=== PATIENT | female | born 1945 | race African-American/Black ===

== ENCOUNTER 2024-01-27 06:08 | Outpatient (REF) | payer MEDICARE, SELFPAY ==
[2024-01-27 06:03] LABS: MANUAL DIFF FLAG NO
[2024-01-27 07:07] LABS: Basophils Absolute Auto 0.1 X10*3/uL (0.0-0.2); Basophils Percent Auto 0.5 % (0-2); Eosinophils Absolute Auto 0.1 X10*3/uL (0.0-0.4); Eosinophils Percent Auto 0.5 % (0-4); Hematocrit 26.7 % (37.0-47.0); Hemoglobin 8.3 g/dl (12.0-16.0); Lymphocytes Percent Auto 9.9 % (20-40); Mean Corpuscular HGB Conc 31.1 g/dl (31.0-35.0); Mean Corpuscular Hemoglobin 25.3 pg (27.0-33.0); Mean Corpuscular Volume 81.4 fL (80.0-98.0); Monocytes Absolute Auto 0.7 X10*3/uL (0.1-1.2); Monocytes Percent Auto 7.6 % (2-11); Neutrophils Absolute Auto 7.8 x10*3/uL (2.0-8.3); Neutrophils Percent Auto 80.5 % (45-73); Platelet Count 369 X10*3/uL (160-400); Red Blood Count 3.28 X10*6/uL (4.20-5.50); Red Cell Distribution Width 16.3 % (11.0-16.0); White Blood Count 9.7 X10*3/uL (4.8-10.8)
[2024-01-27 07:49] LABS: Anion Gap 13 (12-20); Blood Urea Nitrogen 13 mg/dL (9-16); Calcium 8.5 mg/dL (8.4-10.2); Carbon Dioxide 29 mmol/L (22-29); Chloride 101 mmol/L (96-108); Estimated Glomerular Filt Rate > 60; Glucose Random 178 mg/dL (60-115); Potassium 3.4 mmol/L (3.3-5.1); Sodium 140 mmol/L (135-145)
== END 2024-01-27 06:09 | disposition home or self-care (01) ==
LOC: HO.MMNH1L 06:08
PROVIDERS: Visit Provider Family Medicine
DX: I10 Essential (primary) hypertension (principal); A04.72 Enterocolitis due to Clostridium difficile, not specified as recurrent
CPT/HCPCS: 36415; 80048; 85025

== ENCOUNTER 2024-01-31 06:00 | Emergency (ER) | payer MEDICARE, SELFPAY ==
[2024-01-31] VITALS (7 sets, daily range): BP systolic 150–197; BP diastolic 80–110; PULSE 80–87; RESP 15–20; TEMP 36.7–37.6; O2SAT 90–95; BMI 17.9
--- NOTE | 2024-01-31 | ECG_ITS ---
Test Reason : HIGH BP Blood Pressure : / mmHG Vent. Rate : 080 BPM Atrial Rate : 080 BPM P-R Int : 124 ms QRS Dur : 062 ms QT Int : 332 ms P-R-T Axes : 012 -30 032 degrees QTc Int : 382 ms Normal sinus rhythm Left axis deviation Minimal voltage criteria for LVH, may be normal variant ( R in aVL ) Inferior infarct , age undetermined Anterolateral infarct , age undetermined Abnormal ECG No previous ECGs available Referred By: Generic ED Physician Electronically Signed By:Lamberto Whitehead
[2024-01-31 06:49] LABS: Hematocrit 28.3 % (37.0-47.0); Hemoglobin 8.9 g/dl (12.0-16.0); Mean Corpuscular HGB Conc 31.4 g/dl (31.0-35.0); Mean Corpuscular Hemoglobin 24.7 pg (27.0-33.0); Mean Corpuscular Volume 78.6 fL (80.0-98.0); Mean Platelet Volume 8.7 fL (9.4-12.3); Platelet Count 332 X10*3/uL (160-400); Red Cell Distribution Width 16.4 % (11.0-16.0); White Blood Count 8.8 X10*3/uL (4.8-10.8)
[2024-01-31 07:17] LABS: Alanine Aminotransferase 6 U/L (0-31); Albumin Level 2.3 g/dL (3.5-5.0); Alkaline Phosphatase 83 U/L (39-117); Anion Gap 13 (12-20); Aspartate Amino Transferase 13 U/L (5-31); Bilirubin Total 0.3 mg/dL (0.0-1.0); Blood Urea Nitrogen 13 mg/dL (9-16); Calcium 8.8 mg/dL (8.4-10.2); Carbon Dioxide 30 mmol/L (22-29); Chloride 102 mmol/L (96-108); Creatinine Clr Calc Pharmacy 50.6; Estimated Glomerular Filt Rate > 60; Glucose Random 197 mg/dL (60-115); Magnesium 1.4 mg/dL (1.6-2.6); Potassium 3.6 mmol/L (3.3-5.1); Sodium 141 mmol/L (135-145)
[2024-01-31 07:20] LABS: Troponin-I High Sensitivity 280.6 ng/L (<3.5-17.0)
--- NOTE | 2024-01-31 07:21 | ED.GENADULT ---
HPI - General Adult General Chief complaint: General Medical Stated complaint: HIGH BLOOD PRESSURE Time Seen by Provider: 01/31/24 07:00 Source: EMS and other Mode of arrival: EMS History of Present Illness HPI narrative: 79-year-old female with history of dementia who is sent in by Juan Diego Shah for elevated blood pressure. The facility did administer 20 mg of lisinopril but blood pressure remained elevated. Patient denies any complaints of pain or discomfort at this time. Related Data Previous Rx's Medication Instructions Recorded cephalexin 500 mg capsule 500 mg PO BID 5 days #10 caps 01/31/24 Allergies Allergy/AdvReac Type Severity Reaction Status Date / Time No Known Allergies Allergy Verified 01/31/24 06:20 Review of Systems Review of Systems: Yes Unobtainable due to mental condition PMFSH Past Medical History Source: nursing notes reviewed Social History Social History Advance Directives: No Advance Directives Information Provided: No Physical Exam ED Vital Signs: Vital Signs - 24 hr 01/31/24 06:09 01/31/24 06:21 01/31/24 07:32 Temperature 98.9 F 98.0 F 99.6 F Pulse Rate 82 82 Respiratory Rate 15 20 Blood Pressure 197/110 H 191/98 H Pulse Oximetry 90 L 91 L Oxygen Delivery Method Room Air Room Air 01/31/24 08:27 Temperature Pulse Rate 81 Respiratory Rate 18 Blood Pressure 150/80 H Pulse Oximetry 93 Oxygen Delivery Method Room Air BMI result Body Mass Index 17.9 VITAL SIGNS: Reviewed. GENERAL: Cachectic, elderly, in no acute distress. HEAD: Normocephalic/atraumatic EYES: PERRLA, EOMI EARS: Ext canals without abnormality NOSE: Nares patent bilateral OROPHARYNX: no oral lesions noted, posterior pharynx clear NECK: Supple, no adenopathy LUNGS: Normal breath sounds. No adventitious sounds or accessory muscle use. SpO2<90> CARDIOVASCULAR: Regular rate and rhythm without noted murmurs, no JVD but 2+ bilateral foot edema noted. ABDOMEN: Soft, non-tender, non-distended with bowel sounds. MUSCULOSKELETAL: No tenderness, deformities, or effusions noted on gross inspection. EXTREMITIES: No cyanosis, clubbing or edema. SKIN: Inspection of the skin reveals no rashes NEUROLOGIC: Sleeping but easily aroused and oriented x 1. Strength and sensation to light touch were grossly intact x 4. Medications Administered Discontinued Medications Generic Name Dose Route Start Last Admin Trade Name Henrry PRN Reason Stop Dose Admin Furosemide 20 mg 01/31/24 08:16 01/31/24 08:28 Furosemide 20 Mg/2 Ml Vial IVPUSH 01/31/24 08:17 20 mg ONCE ONE Administration Protocol Hydralazine HCl 5 mg 01/31/24 07:19 01/31/24 07:41 Hydralazine Hcl 20 Mg/Ml Vial IVPUSH 01/31/24 07:20 5 mg ONCE ONE Administration Protocol Magnesium Sulfate 2 gm in 50 mls @ 150 mls/hr 01/31/24 07:18 01/31/24 08:01 Magnesium Sulfate/H2o IV 01/31/24 07:37 Infused ONCE ONE Infusion Medical Decision Making Medical Decision Making [facility] Narrative: 79-year-old female with inadequately controlled blood pressure, noted to have low oxygenation and will evaluate for possible underlying CHF/viral illness. I reviewed all investigations and hematologic indices are grossly stable without leukocytosis/thrombocytopenia, there is a stable anemia without overt signs bleeding. Chemistry indices do not demonstrate an FRANSISCO/electrolyte derangements other than magnesium which was repleted with 2 g of magnesium sulfate, there are no abnormal LFTs at this time. High sensitivity troponin is elevated but there are no ST elevation changes on the EKG and suspect that this may be related to uncontrolled high blood pressure. 0953: I discussed the case with Dr. Whitehead, cardiology who agrees that this is likely secondary to uncontrolled blood pressure, patient received antibiotics for urinary tract infection is otherwise transferred back to the facility. Differential Diagnosis Differential Diagnoses: The differential diagnosis associated with the presentation includes Please see the discussion above Admission/Observation Consideration of admission/observation: Escalation of care including admission/observation considered Please see the discussion above Consult Healthcare Provider Management of the patient was discussed with: Structural [employer] Please see the discussion above Lab Data [facility] Lab Attestation statement: I reviewed the patient's lab results. Please see the discussion above 01/31/24 06:45 01/31/24 06:45 Labs: Lab Results 01/31/24 01/31/24 01/31/24 Range/Units 06:45 08:50 08:54 WBC 8.8 (4.8-10.8) X10*3/uL RBC 3.60 L (4.20-5.50) X10*6/uL Hgb 8.9 L (12.0-16.0) g/dl Hct 28.3 L (37.0-47.0) % MCV 78.6 L (80.0-98.0) fL MCH 24.7 L (27.0-33.0) pg MCHC 31.4 (31.0-35.0) g/dl RDW 16.4 H (11.0-16.0) % Plt Count 332 (160-400) X10*3/uL MPV 8.7 L (9.4-12.3) fL Absolute Nucleated RBC 0.000 (0.0-0.012) X10*3/uL Nucleated RBC % (auto) 0.0 (0.0-0.2) /100WBC Sodium 141 (135-145) mmol/L Potassium 3.6 (3.3-5.1) mmol/L Chloride 102 (96-108) mmol/L Carbon Dioxide 30 H (22-29) mmol/L Anion Gap 13 (12-20) BUN 13 (9-16) mg/dL Creatinine 0.63 (0.5-1.4) mg/dL Estim Creat Clear Calc 50.6 Estimated GFR > 60 Random Glucose 197 H (60-115) mg/dL Calcium 8.8 (8.4-10.2) mg/dL Magnesium 1.4 L* (1.6-2.6) mg/dL Total Bilirubin 0.3 (0.0-1.0) mg/dL AST 13 (5-31) U/L ALT 6 (0-31) U/L Alkaline Phosphatase 83 (39-117) U/L Troponin I High Sens 280.6 H* 342.2 H* (<3.5-17.0) ng/L B-Natriuretic Peptide 478 H (<100) pg/mL Total Protein 6.0 L (6.5-8.0) g/dL Albumin 2.3 L (3.5-5.0) g/dL Urine Color Yellow Urine Appearance Clear Urine pH 7.0 (5.0-9.0) Ur Specific [place] 1.010 (1.005-1.025) Urine Protein 30 (1+) H (Neg-Trace) mg/dL Urine Glucose (UA) Negative (Negative) mg/dL Urine Ketones Negative (Negative) mg/dL Urine Blood Negative (Negative) Urine Nitrite Negative (Negative) Ur Leukocyte Esterase Small (1+) H (Negative) Urine RBC 0-2 (0-2) /HPF Urine WBC 6-10 H (0-5) /HPF Ur Squamous Epith Cells 0-2 (0-2) /HPF Urine Bacteria None Seen (None Seen) Hyaline Casts 0-2 (0-2) /LPF Independent Interpretation I performed an independent interpretation of an: EKG Interpretation: Normal sinus rhythm, HR -80, no STEMI, MN/QRS/QTC is within normal limits. External Record Review External record reviewed: Outpatient record and Prior outpatient labs Chronic Conditions Patient?s care impacted by: Hypertension Dementia Critical Care Time Critical Care Time Critical Care Time: Yes Total Critical Care Time: 60 Attestation: I personally attest to this time spent taking care of the patient. Discharge Plan Discharge Clinical Impression: Uncontrolled hypertension, Elevated troponin, Acute UTI Patient Disposition: Xfer Other Instructions: Hypertension (ED), Urinary Tract Infection in Older Adults (ED) Additional Instructions: 1. Patient should complete the course of antibiotics as prescribed. 2. If patient has I blood pressure would recommend administering blood pressure medication as prescribed, if patient needs a dose adjustment would discuss this with the supervising clinician at the facility. Return to the emergency room for any worsening symptoms. Prescriptions: New cephalexin 500 mg capsule 500 mg PO BID 5 Days Qty: 10 0RF Referrals: Royal Grijalva MD [Primary Care Provider] -
[2024-01-31] MEDS: Magnesium Sulfate/H2O 2 GM/50 ML PIGGYBACK IV (07:41)
[2024-01-31] MEDS: hydrALAZINE HCl 20 MG/ML VIAL 5 MG IVPUSH (07:41)
[2024-01-31 08:05] LABS: B Type Natriuretic Peptide 478 pg/mL (<100)
[2024-01-31] MEDS: Furosemide 20 MG/2 ML VIAL IVPUSH (08:28)
--- NOTE | 2024-01-31 08:53 | PC.NURSE ---
Pt straight cathed for urine sample, tolerated well.
[2024-01-31 08:57] LABS: Appearance Urine Clear; Color Urine Yellow; Glucose Urine UA Negative (Negative); Leukocyte Esterase Urine Small (1+) (Negative); Nitrite Urine Negative (Negative); UMIC TRIGGER UACC YES; Urine Blood Negative (Negative); Urine Ketones Negative (Negative); Urine Protein 30 (1+) mg/dL (Neg-Trace)
[2024-01-31 09:02] LABS: Bacteria Urine None Seen (None Seen); Hyaline Casts Urine 0-2 /LPF (0-2); RBC Urine 0-2 /HPF (0-2); Squamous Epithelial Cell Urine 0-2 /HPF (0-2); UACC Culture Trigger YES
[2024-01-31 09:26] LABS: Troponin-I High Sensitivity 342.2 ng/L (<3.5-17.0)
--- NOTE | 2024-01-31 10:18 | PC.NURSE ---
Report given to Mary Jo CARVAJAL at [facility].
[2024-01-31] MEDS: cephALEXin 500 MG CAPSULE PO (10:31)
--- NOTE | 2024-01-31 10:35 | PC.NURSE ---
Pt took PO medication without incident.
--- NOTE | 2024-01-31 11:44 | PC.NURSE ---
is RN resumed care of pt at this time. vss and up to date side from being hypertensive. BP taken on UE bilaterally. dr. fernando notified/aware. nsr on the alarm security or surveillance monitor. no sob/wob noted. respirations even and unlabored. pt aware of plan of care in regards to being d/c'd via [facility] at 1230. plan of care ongoing. call alfaro placed within reach.
[2024-01-31] MEDS: amLODIPine Besylate 5 MG TABLET PO (11:50)
--- NOTE | 2024-01-31 11:51 | PC.NURSE ---
medication administered per provider order. effectiveness pending.
--- NOTE | 2024-01-31 13:02 | PC.NURSE ---
report given to RN at [facility] by previous RN, Arely. pt remains hypertensive prior to discharge - dr. fernando notified/aware of BP prior to pt leaving - states that pt is safe to go back to [facility]. report given to [facility] at this time. pt leaving [facility].
== END 2024-01-31 13:04 | disposition other institution (70) ==
PROVIDERS: Emergency Provider Student in an Organized Health Care Education/Training Program; PCP Family Medicine
DX: N39.0 Urinary tract infection, site not specified (principal); I10 Essential (primary) hypertension; R94.31 Abnormal electrocardiogram [ECG] [EKG]; Z79.899 Other long term (current) drug therapy
CPT/HCPCS: 36415; 51701; 80053; 81001; 83735; 83880; 84484; 85027; 87086; 87088; 93005; 96365; 96375; 99284; J0360; J1940; J3475

== ENCOUNTER → 2024-01-31 06:48 | Outpatient (BNV) | payer MEDICARE, SELFPAY | PROVIDERS: Emergency Provider Student in an Organized Health Care Education/Training Program; PCP Family Medicine; Visit Provider Internal Medicine Cardiovascular Disease | DX: I10 Essential (primary) hypertension (principal) | CPT/HCPCS: 93010 ==

== ENCOUNTER 2024-02-03 06:50 | Outpatient (REF) | payer MEDICARE, SELFPAY ==
[2024-02-03 06:00] LABS: MANUAL DIFF FLAG NO
[2024-02-03 06:29] LABS: Basophils Percent Auto 0.2 % (0-2); Eosinophils Absolute Auto 0.1 X10*3/uL (0.0-0.4); Eosinophils Percent Auto 0.5 % (0-4); Hematocrit 30.3 % (37.0-47.0); Hemoglobin 9.5 g/dl (12.0-16.0); Imm Gran Abs Auto 0.13 X10*3/uL (0.00-0.03); Imm Gran Pct Auto 1.1 % (0.0-0.4); Lymphocytes Absolute Auto 0.8 X10*3/uL (1.2-4.9); Lymphocytes Percent Auto 7.1 % (20-40); Mean Corpuscular HGB Conc 31.4 g/dl (31.0-35.0); Mean Corpuscular Hemoglobin 24.9 pg (27.0-33.0); Mean Corpuscular Volume 79.3 fL (80.0-98.0); Mean Platelet Volume 8.8 fL (9.4-12.3); Monocytes Absolute Auto 0.8 X10*3/uL (0.1-1.2); Monocytes Percent Auto 6.9 % (2-11); Neutrophils Percent Auto 84.2 % (45-73); Platelet Count 392 X10*3/uL (160-400); Red Blood Count 3.82 X10*6/uL (4.20-5.50); Red Cell Distribution Width 16.7 % (11.0-16.0); White Blood Count 11.9 X10*3/uL (4.8-10.8)
[2024-02-03 06:52] LABS: Anion Gap 14 (12-20); Blood Urea Nitrogen 16 mg/dL (9-16); Calcium 8.8 mg/dL (8.4-10.2); Carbon Dioxide 31 mmol/L (22-29); Chloride 102 mmol/L (96-108); Estimated Glomerular Filt Rate > 60; Glucose Random 96 mg/dL (60-115); Potassium 3.1 mmol/L (3.3-5.1); Sodium 144 mmol/L (135-145)
== END 2024-02-03 06:51 | disposition home or self-care (01) ==
LOC: HO.MMNH1L 06:50
PROVIDERS: Visit Provider Family Medicine
DX: I10 Essential (primary) hypertension (principal); A04.72 Enterocolitis due to Clostridium difficile, not specified as recurrent
CPT/HCPCS: 36415; 80048; 85025

== ENCOUNTER 2024-02-10 06:08 | Outpatient (REF) | payer MEDICARE, SELFPAY ==
[2024-02-10 06:05] LABS: MANUAL DIFF FLAG NO
[2024-02-10 06:57] LABS: Basophils Percent Auto 0.3 % (0-2); Eosinophils Percent Auto 0.1 % (0-4); Hematocrit 29.1 % (37.0-47.0); Hemoglobin 8.9 g/dl (12.0-16.0); Imm Gran Abs Auto 0.12 X10*3/uL (0.00-0.03); Imm Gran Pct Auto 0.9 % (0.0-0.4); Lymphocytes Absolute Auto 0.6 X10*3/uL (1.2-4.9); Lymphocytes Percent Auto 4.8 % (20-40); Mean Corpuscular HGB Conc 30.6 g/dl (31.0-35.0); Mean Corpuscular Hemoglobin 23.7 pg (27.0-33.0); Mean Corpuscular Volume 77.6 fL (80.0-98.0); Mean Platelet Volume 8.6 fL (9.4-12.3); Monocytes Absolute Auto 0.7 X10*3/uL (0.1-1.2); Monocytes Percent Auto 5.4 % (2-11); Neutrophils Absolute Auto 11.5 x10*3/uL (2.0-8.3); Neutrophils Percent Auto 88.5 % (45-73); Platelet Count 390 X10*3/uL (160-400); Red Blood Count 3.75 X10*6/uL (4.20-5.50); Red Cell Distribution Width 16.8 % (11.0-16.0)
[2024-02-10 07:43] LABS: Anion Gap 16 (12-20); Blood Urea Nitrogen 16 mg/dL (9-16); Calcium 9.2 mg/dL (8.4-10.2); Carbon Dioxide 32 mmol/L (22-29); Chloride 103 mmol/L (96-108); Estimated Glomerular Filt Rate > 60; Sodium 148 mmol/L (135-145)
[2024-02-10 08:12] LABS: Glucose Random 24 mg/dL (60-115); Potassium 2.7 mmol/L (3.3-5.1)
== END 2024-02-10 06:09 | disposition home or self-care (01) ==
LOC: HO.MMNH1L 06:08
PROVIDERS: Visit Provider Family Medicine
DX: I10 Essential (primary) hypertension (principal); A04.72 Enterocolitis due to Clostridium difficile, not specified as recurrent
CPT/HCPCS: 36415; 80048; 85025

== ENCOUNTER 2024-02-11 06:17 | Outpatient (REF) | payer MEDICARE, SELFPAY ==
[2024-02-11 06:45] LABS: Anion Gap 13 (12-20); Blood Urea Nitrogen 18 mg/dL (9-16); Calcium 9.1 mg/dL (8.4-10.2); Carbon Dioxide 31 mmol/L (22-29); Chloride 103 mmol/L (96-108); Estimated Glomerular Filt Rate > 60; Glucose Random 372 mg/dL (60-115); Potassium 3.9 mmol/L (3.3-5.1); Sodium 143 mmol/L (135-145)
== END 2024-02-11 06:18 | disposition home or self-care (01) ==
LOC: HO.MMNH1L 06:17
PROVIDERS: Visit Provider Family Medicine
DX: G93.40 Encephalopathy, unspecified (principal); R27.8 Other lack of coordination
CPT/HCPCS: 36415; 80048

== ENCOUNTER 2024-02-17 05:46 | Outpatient (REF) | payer MEDICARE, SELFPAY ==
[2024-02-17 05:38] LABS: MANUAL DIFF FLAG NO
[2024-02-17 05:55] LABS: Basophils Percent Auto 0.1 % (0-2); Hematocrit 33.6 % (37.0-47.0); Imm Gran Abs Auto 0.07 X10*3/uL (0.00-0.03); Imm Gran Pct Auto 0.7 % (0.0-0.4); Lymphocytes Absolute Auto 0.5 X10*3/uL (1.2-4.9); Lymphocytes Percent Auto 5.2 % (20-40); Mean Corpuscular HGB Conc 29.8 g/dl (31.0-35.0); Mean Corpuscular Hemoglobin 23.4 pg (27.0-33.0); Mean Corpuscular Volume 78.7 fL (80.0-98.0); Mean Platelet Volume 8.5 fL (9.4-12.3); Monocytes Absolute Auto 0.4 X10*3/uL (0.1-1.2); Monocytes Percent Auto 4.2 % (2-11); Neutrophils Absolute Auto 8.4 x10*3/uL (2.0-8.3); Neutrophils Percent Auto 89.8 % (45-73); Platelet Count 255 X10*3/uL (160-400); Red Blood Count 4.27 X10*6/uL (4.20-5.50); Red Cell Distribution Width 17.5 % (11.0-16.0); White Blood Count 9.4 X10*3/uL (4.8-10.8)
[2024-02-17 06:44] LABS: Blood Urea Nitrogen 32 mg/dL (9-16); Calcium 10.1 mg/dL (8.4-10.2); Estimated Glomerular Filt Rate > 60; Glucose Random 345 mg/dL (60-115)
[2024-02-17 06:51] LABS: Anion Gap 17 (12-20)
[2024-02-17 07:03] LABS: Carbon Dioxide 34 mmol/L (22-29); Chloride 115 mmol/L (96-108); Potassium 2.5 mmol/L (3.3-5.1); Sodium 163 mmol/L (135-145)
== END 2024-02-17 05:47 | disposition home or self-care (01) ==
LOC: HO.MMNH1L 05:46
PROVIDERS: Visit Provider Family Medicine
DX: I10 Essential (primary) hypertension (principal); E87.5 Hyperkalemia; A04.72 Enterocolitis due to Clostridium difficile, not specified as recurrent
CPT/HCPCS: 36415; 80048; 85025